=== PATIENT | male | born 1955 | race Caucasian/White ===

== ENCOUNTER 2017-05-06 08:52 | Emergency (ER) | payer MEDICAID ==
[~2017-05-06] VITALS: Ht 182.9 cm; Wt 110.5 kg
[~2017-05-06 08:52] MED LIST: ASPI-611 PO; BUPR-94 PO; HYDR-3972 PO; LORA0.5T PO; LURA80TA3 PO; OMEP20CA10 PO; TEST200V10 IM; ZOLP10TA5 PO
[2017-05-06] MEDS ORDERED: HYDR-3965 PO ×2 (09:41→13:16)
[2017-05-06 10:21] VITALS: BP 125/65
[2017-05-06] MEDS ORDERED: ibuprofen 200mg tablet PO ONE (10:55)
== END 2017-05-06 13:01 | disposition home or self-care (01) ==
LOC: ER 08:53
DX: M25.561 Pain in right knee (principal); M25.461 Effusion, right knee; G89.29 Other chronic pain; I48.91 Unspecified atrial fibrillation; K21.9 Gastro-esophageal reflux disease without esophagitis; Z98.890 Other specified postprocedural states; Z79.82 Long term (current) use of aspirin; Z88.1 Allergy status to other antibiotic agents
CPT/HCPCS: 29505; 73564; 99284

== ENCOUNTER 2018-04-12 22:37 | Emergency (ER) | payer MEDICAID ==
[~2018-04-12] VITALS: Ht 182.9 cm; Wt 125.0 kg
[2018-04-12 23:11] LABS: BASOPHILS # (AUTO) 0.1 X10'3 (0-0.2); BASOPHILS % (AUTO) 0.7 % (0-1); EOSINOPHILS # (AUTO) 0.4 X10'3 (0-0.9); EOSINOPHILS % (AUTO) 4.1 % (0-6); HEMATOCRIT 44.2 % (42.0-52.0); HEMOGLOBIN 14.6 g/dl (14.0-17.9); LYMPHOCYTES # (AUTO) 2.4 X10'3 (1.1-4.8); LYMPHOCYTES % (AUTO) 27.7 % (21-51); MEAN CORPUSCULAR HEMOGLOBIN 30.3 PG (27.0-31.0); MEAN CORPUSCULAR HGB CONC 32.9 % (33.0-36.5); MEAN CORPUSCULAR VOLUME 92.1 FL (78-98); MEAN PLATELET VOLUME 9.5 FL (7.4-10.4); MONOCYTES # (AUTO) 0.8 X10'3 (0-0.9); MONOCYTES % (AUTO) 9.6 % (2-12); NEUTROPHILS % (AUTO) 57.9 % (42-75); PLATELET COUNT 226 X10'3 (140-440); RED CELL DISTRIBUTION WIDTH 13.7 % (11.5-14.5); WHITE BLOOD COUNT 8.6 X10'3 (4.5-11.0)
[2018-04-12 23:51] LABS: INR 1.3 INR; PARTIAL THROMBOPLASTIN TIME 41 SECONDS (22-32); PROTHROMBIN TIME 13.1 SECONDS (9.0-12.0)
[2018-04-12 23:58] LABS: ALANINE AMINOTRANSFERASE 20 U/L (12-78); ALBUMIN 3.6 G/DL (3.4-5.0); ALKALINE PHOSPHATASE 108 IU/L (46-116); ANION GAP 6 (8-16); ASPARTATE AMINO TRANSFERASE 16 U/L (10-37); BILIRUBIN,TOTAL 0.4 MG/DL (0.1-1.0); BLOOD UREA NITROGEN 13 MG/DL (7-18); BUN/CREATININE RATIO 13.5 (5.4-32.0); CALCIUM 8.6 MG/DL (8.5-10.1); CHLORIDE 104 MMOL/L (99-107); CREATININE 0.96 MG/DL (0.60-1.10); GLUCOSE 123 MG/DL (70-104); POTASSIUM 3.8 MMOL/L (3.5-5.1); SODIUM 139 MMOL/L (135-145); TOTAL CARBON DIOXIDE 28.6 MMOL/L (24-32); TOTAL PROTEIN 7.3 G/DL (6.4-8.2); eGFR 80 ML/MIN
[2018-04-13] MEDS ORDERED: iohexol 300mg/ml 100ml inj. ONE (00:34)
[2018-04-13] MEDS ORDERED: HYDR-4383 PO (01:22)
[2018-04-13 01:31] VITALS: BP 128/87
[2018-04-13] MEDS ORDERED: SOTA80TA73 PO (01:41)
[2018-04-13] MEDS ORDERED: GABA600T PO (01:41)
[2018-04-13] MEDS ORDERED: RIVA15TA PO (01:41)
== END 2018-04-13 01:43 | disposition home or self-care (01) ==
LOC: ER 22:37
DX: K43.9 Ventral hernia without obstruction or gangrene (principal); I48.91 Unspecified atrial fibrillation; I10 Essential (primary) hypertension; K21.9 Gastro-esophageal reflux disease without esophagitis; G89.29 Other chronic pain; R10.13 Epigastric pain; F12.90 Cannabis use, unspecified, uncomplicated; Z88.1 Allergy status to other antibiotic agents; Z79.01 Long term (current) use of anticoagulants; Z56.0 Unemployment, unspecified; Z98.890 Other specified postprocedural states
CPT/HCPCS: 36415; 71045; 74177; 80053; 84484; 85025; 85610; 85730; 93005; 99284; Q9967; 36430

== ENCOUNTER 2018-05-21 13:08 | Emergency (ER) | payer MEDICAID ==
[~2018-05-21] VITALS: Ht 182.9 cm; Wt 127.0 kg
[~2018-05-21 13:08] MED LIST changes: -ASPI-611 PO; -BUPR-94 PO; +GABA600T PO; -HYDR-3972 PO; +HYDR-4383 PO; -LORA0.5T PO; -LURA80TA3 PO; -OMEP20CA10 PO; +RIVA15TA PO; +SOTA80TA73 PO; -TEST200V10 IM
[2018-05-21 13:38] VITALS: BP 116/78
[2018-05-21] MEDS ORDERED: HYDROcodone/acetaminophen 10/325mg tab PO ONE (15:15)
[2018-05-21] MEDS ORDERED: HYDR-4383 PO (15:31)
[2018-05-21] MEDS ORDERED: NAPR-56 PO (15:31)
== END 2018-05-21 15:54 | disposition home or self-care (01) ==
LOC: ER 13:09
DX: S70.01XA Contusion of right hip, initial encounter (principal); S93.401A Sprain of unspecified ligament of right ankle, initial encounter; I48.91 Unspecified atrial fibrillation; I10 Essential (primary) hypertension; K21.9 Gastro-esophageal reflux disease without esophagitis; G89.29 Other chronic pain; M54.9 Dorsalgia, unspecified; F12.90 Cannabis use, unspecified, uncomplicated; Z56.0 Unemployment, unspecified; Z88.1 Allergy status to other antibiotic agents; W01.0XXA Fall on same level from slipping, tripping and stumbling without subsequent striking against object, initial encounter; Y93.89 Activity, other specified; Y92.89 Other specified places as the place of occurrence of the external cause; Y99.8 Other external cause status
CPT/HCPCS: 73502; 73610; 73630; 99284

== ENCOUNTER 2018-05-27 07:33 | Day surgery (SDC) | payer MEDICAID ==
[2018-05-26 10:44] LABS: BASOPHILS % (AUTO) 0.3 % (0-1); EOSINOPHILS # (AUTO) 0.2 X10'3 (0-0.9); EOSINOPHILS % (AUTO) 3.5 % (0-6); LYMPHOCYTES # (AUTO) 1.7 X10'3 (1.1-4.8); LYMPHOCYTES % (AUTO) 24.2 % (21-51); MEAN CORPUSCULAR HEMOGLOBIN 31.1 PG (27.0-31.0); MEAN CORPUSCULAR HGB CONC 33.9 % (33.0-36.5); MEAN CORPUSCULAR VOLUME 91.8 FL (78-98); MEAN PLATELET VOLUME 9.1 FL (7.4-10.4); MONOCYTES # (AUTO) 0.6 X10'3 (0-0.9); MONOCYTES % (AUTO) 8.3 % (2-12); NEUTROPHILS # (AUTO) 4.5 X10'3 (1.8-7.7); NEUTROPHILS % (AUTO) 63.7 % (42-75); PRE OP HEMATOCRIT 43.7 % (42.0-52.0); PRE OP HEMOGLOBIN 14.8 g/dL (14.0-17.9); PRE OP PLATELET COUNT 220 X10'3 (140-440); RED BLOOD COUNT 4.76 X10'6 (4.70-6.10); RED CELL DISTRIBUTION WIDTH 13.6 % (11.5-14.5)
[2018-05-26 10:45] LABS: CLARITY,URINE CLEAR (Clear); COLOR,URINE YELLOW (Yellow); GLUCOSE, URINE NEGATIVE (Neg); KETONES,URINE NEGATIVE (Neg); LEUKOCYTE ESTERASE ,URINE NEGATIVE (Neg); NITRITES, URINE NEGATIVE (Neg); OCCULT BLOOD,URINE NEGATIVE (Neg); PH,URINE 6.5 (4.8-8.0); PROTEIN,URINE NEGATIVE (Neg); UA COLLECTION TYPE VOIDED; UROBILINOGEN,URINE 0.2 E.U/dL (0.2-1.0)
[2018-05-26 11:11] LABS: ALBUMIN 3.6 G/DL (3.4-5.0); ALBUMIN/GLOBULIN RATIO 0.9 (1.1-1.5); ALKALINE PHOSPHATASE 101 IU/L (46-116); BLOOD UREA NITROGEN 13 MG/DL (7-18); BUN/CREATININE RATIO 14.3 (5.4-32.0); CALCIUM 8.6 MG/DL (8.5-10.1); CHLORIDE 103 MMOL/L (99-107); CREATININE 0.91 MG/DL (0.60-1.10); PRE OP ALT 24 U/L (30-65); PRE OP ANION GAP 8 (8-16); PRE OP AST 17 U/L (10-37); PRE OP BILIRUB, TOTAL 0.6 MG/DL (0.0-1.0); PRE OP GLUCOSE 97 MG/DL (70-104); PRE OP SODIUM 141 MMOL/L (135-145); TOTAL CARBON DIOXIDE 30.4 MMOL/L (24-32); TOTAL PROTEIN 7.6 G/DL (6.4-8.2); eGFR 85 ML/MIN
[2018-05-26 11:15] LABS: PRE OP PROTIME 10.7 SECONDS (9.0-12.0)
[2018-05-26 11:16] LABS: PRE OP INR 1.1 INR
[2018-05-27] VITALS (12 sets, daily range): BP systolic 113–162; BP diastolic 70–82
[~2018-05-27] VITALS: Ht 182.9 cm; Wt 129.0 kg
[~2018-05-27 07:33] MED LIST changes: +DOCUMENT DATE & TIME OF BETA-BLOCKER PO ONE; -GABA600T PO; -HYDR-4383 PO; +ceFAZolin inj. 3,000 MG in normal saline 100ml IV soln 100 ML IV ONE; +famotidine 20mg tablet PO ONE; +ringers solution, lacted 1,000 ML IV SCH
[2018-05-27] MEDS ORDERED: morphine 4 MG/ML inj SYRINge ONE (09:33)
[2018-05-27] MEDS ORDERED: ceFAZolin 1000mg inj ONE (09:39)
[2018-05-27] MEDS ORDERED: BUPIVAcaine/PF 2.5mg/ml (0.25%) 10ml vial ONE (09:39)
[2018-05-27] MEDS ORDERED: rocuronium 10mg/ml inj IV ONE ×2 (10:24→10:28)
[2018-05-27] MEDS ORDERED: dexamethasone sod phosphate 10mg/ml inj ONE (10:24)
[2018-05-27] MEDS ORDERED: sevoflurane 250ml liquid IH ONE (10:24)
[2018-05-27] MEDS ORDERED: fentaNYL/PF 50MCG/1 ML 2ML syringe ONE (10:26)
[2018-05-27] MEDS ORDERED: midazolam 2 mg/2 ml injection ONE (10:26)
[2018-05-27] MEDS ORDERED: propofol inj 20 ML IV ONE (10:27)
[2018-05-27] MEDS ORDERED: LIDOcaine 2% (20mg/ml) 5ml vial ONE (10:27)
[2018-05-27] MEDS ORDERED: ringers solution, lacted 1,000 ML IV SCH (10:30)
[2018-05-27] MEDS ORDERED: ondansetron/PF 4mg/2ml inj IV PRN (10:30)
[2018-05-27] MEDS ORDERED: labetalol 20mg/4ml (5mg/ml) syringe IV PRN (10:30)
[2018-05-27] MEDS ORDERED: hydrALAZINE 20mg/ml inj. IV PRN (10:30)
[2018-05-27] MEDS ORDERED: fentaNYL/PF 50MCG/1 ML 2ML syringe IV PRN ×2 (10:30)
[2018-05-27] MEDS ORDERED: morphine 4 MG/ML inj SYRINge IV PRN (10:30)
[2018-05-27] MEDS ORDERED: ondansetron/PF 4mg/2ml inj ONE (10:45)
[2018-05-27] MEDS ORDERED: glycopyrrolate 0.2mg/ml inj ONE (11:59)
--- NOTE | 2018-05-27 12:23 | NUR ---
Received from OR via , accompanied by Anesthesiologist ANGÉLICA and report given by Anesthesiolgist. AWAKE IN NO RESP DISTRESS SKIN WARM AND DRY HOB ELEVATED ABD SOFT DSGS DI, CO PAIN MED IV.
[2018-05-27] MEDS: morphine 4 MG/ML inj SYRINge IV PRN ×2 (12:27→12:44)
[2018-05-27] MEDS ORDERED: HYDROcodone/acetaminophen 10/325mg tab PO ONE (12:55)
--- NOTE | 2018-05-27 14:23 | NUR ---
AWAKE VS WNL, PAIN DECREASED AFTER IV AND PO MEDS DSG DI, ABD SOFT VOIDED QS CLEAR URINE. DISCH INSTR GIVEN TO PT AND SO AND UNDERSTOOD. TOLERATES LIQUIDS. SO HAS PAIN MEDS FROM [facility] IN [facility]. HOME WITH BELONGINGS.
== END 2018-05-27 14:23 | disposition home or self-care (01) ==
LOC: PAS 07:33
PROVIDERS: ATTEND Surgery
DX: K43.9 Ventral hernia without obstruction or gangrene (principal); K66.0 Peritoneal adhesions (postprocedural) (postinfection); I10 Essential (primary) hypertension; E66.9 Obesity, unspecified; I49.8 Other specified cardiac arrhythmias; M19.90 Unspecified osteoarthritis, unspecified site; F41.8 Other specified anxiety disorders; I48.91 Unspecified atrial fibrillation; K21.9 Gastro-esophageal reflux disease without esophagitis; F32.9 Major depressive disorder, single episode, unspecified; F41.0 Panic disorder [episodic paroxysmal anxiety]; Z88.1 Allergy status to other antibiotic agents; Z68.38 Body mass index [BMI] 38.0-38.9, adult; Z86.19 Personal history of other infectious and parasitic diseases; Z79.891 Long term (current) use of opiate analgesic; Z79.899 Other long term (current) drug therapy; Z98.890 Other specified postprocedural states
CPT/HCPCS: 36415; 49329; 49652; 80053; 81003; 82948; 85025; 85610; 85730; C1781; J0690; J1100; J2001; J2250; J2270; J2405; J2704; J3010; J3490; J7120; A7000; C1758; J7030

== ENCOUNTER 2021-11-28 07:44 | Inpatient (IN) | payer MEDICAID ==
[~2021-11-28] VITALS: Ht 182.9 cm; Wt 140.9 kg
[2021-11-28] VITALS (7 sets, daily range): BP systolic 102–126; BP diastolic 52–96
[~2021-11-28 07:44] MED LIST changes: -DOCUMENT DATE & TIME OF BETA-BLOCKER PO ONE; -ceFAZolin inj. 3,000 MG in normal saline 100ml IV soln 100 ML IV ONE; -famotidine 20mg tablet PO ONE; -ringers solution, lacted 1,000 ML IV SCH
--- NOTE | 2021-11-28 08:08 | NUR ---
[facility] PT CONDITION WITH THE CHARGE ANDREW AT THIS TIME.WORKING ON GETTING ROON AVAILABLE ,NOTIFIED THE PT ALSO .
[2021-11-28] MEDS ORDERED: pantoprazole IV 80 MG in normal saline 100ml IV soln 100 ML IV ONE ×2 (08:15→09:20)
[2021-11-28 09:13] LABS: BASOPHILS % (AUTO) 0.5 % (0-1); EOSINOPHILS # (AUTO) 0.2 X10'3 (0-0.9); EOSINOPHILS % (AUTO) 2.6 % (0-6); HEMATOCRIT 40.2 % (42.0-52.0); LYMPHOCYTES % (AUTO) 23.5 % (21-51); MEAN CORPUSCULAR HEMOGLOBIN 31.5 PG (27.0-31.0); MEAN CORPUSCULAR HGB CONC 34.7 g/dL (33.0-36.5); MEAN CORPUSCULAR VOLUME 90.7 FL (78-98); MEAN PLATELET VOLUME 9.5 FL (7.4-10.4); MONOCYTES # (AUTO) 0.6 X10'3 (0-0.9); MONOCYTES % (AUTO) 7.3 % (2-12); NEUTROPHILS # (AUTO) 5.7 X10'3 (1.8-7.7); NEUTROPHILS % (AUTO) 66.1 % (42-75); PLATELET COUNT 223 X10'3 (140-440); RED BLOOD COUNT 4.43 X10'6 (4.70-6.10); RED CELL DISTRIBUTION WIDTH 13.7 % (11.5-14.5); WHITE BLOOD COUNT 8.6 X10'3 (4.5-11.0)
[2021-11-28 09:18] LABS: ALANINE AMINOTRANSFERASE 25 U/L (12-78); ALBUMIN 3.6 G/DL (3.4-5.0); ALKALINE PHOSPHATASE 84 IU/L (46-116); ANION GAP 8 (8-16); ASPARTATE AMINO TRANSFERASE 16 U/L (10-37); BILIRUBIN,TOTAL 0.7 MG/DL (0.1-1.0); BLOOD UREA NITROGEN 28 MG/DL (7-18); BUN/CREATININE RATIO 33.7 (5.4-32.0); CALCIUM 8.3 MG/DL (8.5-10.1); CHLORIDE 107 MMOL/L (99-107); CREATININE 0.83 MG/DL (0.60-1.10); GLUCOSE 103 MG/DL (70-104); SODIUM 141 MMOL/L (135-145); TOTAL CARBON DIOXIDE 25.8 MMOL/L (24-32); TOTAL PROTEIN 7.3 G/DL (6.4-8.2); eGFR > 90 ML/MIN
[2021-11-28 09:20] LABS: LIPASE 74 U/L (73-393)
[2021-11-28] MEDS ORDERED: mag hydrox/Alum hydrox/simeth 30ml oral suspension PO PRN (10:35)
[2021-11-28] MEDS ORDERED: magnesium hydroxide 30ml (MOM) UD suspension PO PRN (10:35)
[2021-11-28] MEDS ORDERED: HYDROcodone/acetaminophen 5mg/325mg tablet PO PRN (10:35)
[2021-11-28] MEDS ORDERED: morphine 2 MG/ML inj. syringe IV PRN ×2 (10:35)
[2021-11-28] MEDS: normal saline 1000ml 1,000 ML IV SCH ×2 (10:35→21:25)
[2021-11-28] MEDS ORDERED: acetaminophen 325mg tablet PO PRN ×2 (10:35)
[2021-11-28] MEDS ORDERED: ondansetron/PF 4mg/2ml inj IV PRN (10:35)
[2021-11-28] MEDS ORDERED: fentaNYL/PF 50MCG/1 ML 2ML syringe ONE (11:37)
[2021-11-28] MEDS ORDERED: MIDAZolam 1 MG/ML 5ML VIAL ONE (11:37)
[2021-11-28] MEDS ORDERED: LIDOcaine Viscous 15ml cup ONE (11:38)
--- NOTE | 2021-11-28 11:50 | NUR ---
Patient sent to GI lab via stretcher.
[2021-11-28] MEDS: pantoprazole 40MG/NS 100ML BAG 100 ML IV SCH ×3 (13:45→23:05)
[2021-11-28] MEDS ORDERED: ASPI81TA52 PO (14:18)
[2021-11-28] MEDS ORDERED: LORA-268 PO (14:18)
--- NOTE | 2021-11-28 16:18 | NUR ---
PAGE TO DR MEHTA X 2 FOR DIET ORDER. PT DENIES PAIN AND STATES HE IS HUNGRY
--- NOTE | 2021-11-28 17:12 | NUR ---
Per , patient can eat a regular diet starting now.
--- NOTE | 2021-11-28 17:35 | NUR ---
Report given to Viviana on PCU unit
--- NOTE | 2021-11-28 18:58 | NUR ---
Problems reprioritized. Patient report given, questions answered & plan of care reviewed with Inna HARRIS, patient stable at transfer of care.
[2021-11-28] MEDS ORDERED: docusate sod 100mg capsule PO SCH (20:00)
[2021-11-29 02:00] VITALS: BP 100/45
[2021-11-29 06:00] VITALS: BP 103/47
[2021-11-29 06:12] LABS: BASOPHILS % (AUTO) 0.5 % (0-1); EOSINOPHILS # (AUTO) 0.3 X10'3 (0-0.9); HEMATOCRIT 34.9 % (42.0-52.0); HEMOGLOBIN 11.9 g/dl (14.0-17.9); LYMPHOCYTES # (AUTO) 2.2 X10'3 (1.1-4.8); LYMPHOCYTES % (AUTO) 32.9 % (21-51); MEAN CORPUSCULAR HEMOGLOBIN 31.5 PG (27.0-31.0); MEAN CORPUSCULAR HGB CONC 34.1 g/dL (33.0-36.5); MEAN CORPUSCULAR VOLUME 92.6 FL (78-98); MEAN PLATELET VOLUME 9.4 FL (7.4-10.4); MONOCYTES # (AUTO) 0.6 X10'3 (0-0.9); MONOCYTES % (AUTO) 9.1 % (2-12); NEUTROPHILS # (AUTO) 3.5 X10'3 (1.8-7.7); NEUTROPHILS % (AUTO) 52.5 % (42-75); PLATELET COUNT 178 X10'3 (140-440); RED BLOOD COUNT 3.77 X10'6 (4.70-6.10); RED CELL DISTRIBUTION WIDTH 13.6 % (11.5-14.5); WHITE BLOOD COUNT 6.6 X10'3 (4.5-11.0)
--- NOTE | 2021-11-29 06:15 | NUR ---
Patient in room PCU 3026. I have received report from Inna HARRIS and had the opportunity to ask questions and assume patient care.
[2021-11-29 06:21] LABS: ALBUMIN 2.8 G/DL (3.4-5.0); ANION GAP 6 (8-16); BLOOD UREA NITROGEN 20 MG/DL (7-18); BUN/CREATININE RATIO 23.3 (5.4-32.0); CALCIUM 7.9 MG/DL (8.5-10.1); CHLORIDE 109 MMOL/L (99-107); CREATININE 0.86 MG/DL (0.60-1.10); GLUCOSE 93 MG/DL (70-104); SODIUM 143 MMOL/L (135-145); TOTAL CARBON DIOXIDE 27.7 MMOL/L (24-32); eGFR 90 ML/MIN
[2021-11-29] MEDS ORDERED: sotalol 80mg tablet PO ONE (08:05)
[2021-11-29] MEDS ORDERED: pantoprazole 40mg Tablet.DR PO ONE (08:55)
[2021-11-29] MEDS ORDERED: PANT-47 PO (09:39)
--- NOTE | 2021-11-29 14:29 | NUR ---
Patient stable for discharge per Dr. Borrero orders. All discharge instructions reviewed with patient and all questions answered. Pt verbalized understanding. New prescription called into [facility]. All belongings collected and sent with patient. Wheeled to lobby via nursing staff and driven home by .
== END 2021-11-29 10:26 | disposition home or self-care (01) | DRG 241 ==
LOC: ER 07:45 → ED HOLD 10:36 → PCU 3S 17:52
PROVIDERS: ADMIT Internal Medicine; ATTEND Internal Medicine
PROC: 0DB48ZX Excision of Esophagogastric Junction, Via Natural or Artificial Opening Endoscopic, Diagnostic (ICD-10-PCS; principal; 2021-11-28)
PROC: 0DB78ZX Excision of Stomach, Pylorus, Via Natural or Artificial Opening Endoscopic, Diagnostic (ICD-10-PCS; 2021-11-28)
DX: K25.4 Chronic or unspecified gastric ulcer with hemorrhage (principal); E66.01 Morbid (severe) obesity due to excess calories; I10 Essential (primary) hypertension; I48.0 Paroxysmal atrial fibrillation; K22.70 Barrett's esophagus without dysplasia; Z96.649 Presence of unspecified artificial hip joint; F41.9 Anxiety disorder, unspecified; F12.90 Cannabis use, unspecified, uncomplicated; G89.29 Other chronic pain; K21.9 Gastro-esophageal reflux disease without esophagitis; M54.9 Dorsalgia, unspecified; Z56.0 Unemployment, unspecified; Z82.49 Family history of ischemic heart disease and other diseases of the circulatory system; Z68.41 Body mass index [BMI] 40.0-44.9, adult; Z88.8 Allergy status to other drugs, medicaments and biological substances; Z79.01 Long term (current) use of anticoagulants; Z79.899 Other long term (current) drug therapy
CPT/HCPCS: 36415; 43239; 71045; 80048; 80053; 83690; 83880; 84484; 85025; 86885; 86900; 86901; 96374; 99152; 99285; A4620; C9113; G0378; J2250; J3010; J3490; J7030

== ENCOUNTER 2023-10-03 10:15 | Emergency (ER) | payer MEDICARE, MEDICAID ==
[~2023-10-03] VITALS: Ht 182.9 cm; Wt 136.4 kg
[~2023-10-03 10:15] MED LIST changes: +LORA-268 PO; +PANT-47 PO; -RIVA15TA PO
[2023-10-03 10:19] VITALS: TEMP 97.6
[2023-10-03] MEDS ORDERED: diphenhydrAMINE 50 mg/ml inj IV ONE (10:45)
[2023-10-03] MEDS ORDERED: famotidine/PF 10 mg/ml inj IV ONE (10:45)
[2023-10-03] MEDS ORDERED: dexamethasone 4mg/ml inj IV ONE (10:45)
[2023-10-03] MEDS ORDERED: EPIN0.3P3 IM (10:50)
[2023-10-03] MEDS ORDERED: famotidine 10mg tablet PO SCH (10:50)
[2023-10-03 10:52] VITALS: BP 128/71; PULSE 70; RESP 16; O2SAT 93
[2023-10-03] MEDS: diphenhydrAMINE 25mg capsule PO ONE (10:55)
[2023-10-03] MEDS: famotidine 20mg tablet PO ONE (10:55)
[2023-10-03] MEDS: predniSONE 20 mg tablet PO ONE (10:55)
== END 2023-10-03 11:06 | disposition home or self-care (01) ==
LOC: ER 10:16
DX: T63.441A Toxic effect of venom of bees, accidental (unintentional), initial encounter (principal); I10 Essential (primary) hypertension; K21.9 Gastro-esophageal reflux disease without esophagitis; Z88.1 Allergy status to other antibiotic agents; Z79.899 Other long term (current) drug therapy
CPT/HCPCS: 99284; J7512; Q0163

== ENCOUNTER 2024-06-22 10:12 | Emergency (ER) | payer MEDICARE, MEDICAID ==
[~2024-06-22] VITALS: Ht 182.9 cm; Wt 150.0 kg
[~2024-06-22 10:12] MED LIST changes: +EPIN0.3P3 IM
[2024-06-22 10:17] VITALS: TEMP 98.5
[2024-06-22] MEDS ORDERED: prednisone 10mg tablet PO ONE (13:40)
[2024-06-22] MEDS: predniSONE 20 mg tablet PO ONE (14:08)
[2024-06-22 14:10] VITALS: PULSE 50; RESP 12; O2SAT 95
[2024-06-22] MEDS: ipratropium/albuterol 3ml nebule NEB ONE (14:10)
[2024-06-22 14:18] VITALS: PULSE 52; RESP 12; O2SAT 98
[2024-06-22 15:47] VITALS: BP 133/75; PULSE 50; RESP 18; O2SAT 94
[2024-06-22] MEDS ORDERED: PRED20TA PO (16:13)
[2024-06-22] MEDS ORDERED: BENZ-38 PO (16:13)
[2024-06-22] MEDS ORDERED: ALBU8HFA INH (16:13)
== END 2024-06-22 17:00 | disposition home or self-care (01) ==
LOC: ER 10:12
DX: J06.9 Acute upper respiratory infection, unspecified (principal); I10 Essential (primary) hypertension; I48.91 Unspecified atrial fibrillation; K21.9 Gastro-esophageal reflux disease without esophagitis; G89.29 Other chronic pain; M54.9 Dorsalgia, unspecified; F41.9 Anxiety disorder, unspecified; F12.90 Cannabis use, unspecified, uncomplicated; Z88.1 Allergy status to other antibiotic agents; Z79.899 Other long term (current) drug therapy; Z56.0 Unemployment, unspecified; Z20.822 Contact with and (suspected) exposure to COVID-19
CPT/HCPCS: 36415; 71045; 87502; 87503; 87811; 93005; 94640; 99285; J7512; 94760